=== PATIENT | male | born 2000 | race Caucasian/White ===

== ENCOUNTER 2025-07-30 00:33 | Emergency (ER) | payer OTHER, SELFPAY ==
[2025-07-30 00:36] VITALS: BP 134/85; PULSE 102; RESP 20; TEMP 36.4; O2SAT 98; BMI 41.7
--- NOTE | 2025-07-30 00:52 | ED.EAR ---
HPI - Ear Problem General Chief complaint: Ear Problems Stated complaint: ear infection Time Seen by Provider: 07/30/25 00:51 Source: patient Mode of arrival: ambulatory Limitations: no limitations History of Present Illness ED Provider: Huy HEATH HPI Narrative: The patient is a 25-year-old male presenting to the ED reporting he is currently being treated for a right ear infection. Patient reports he was seen at urgent care, started on amoxicillin as well as eardrops, however he can not recall the name of the eardrops. The patient reports symptoms did not improve and he returned to urgent care 2 days ago at which time he was switched to clindamycin and given steroid ear drops. Patient presents to the ED as symptoms have continued to not improve and he now feels his right ear canal has swollen shut, patient's states he is concerned the eardrops are ineffective due to the severity of swelling. The patient denies associated fever/chills, nausea, vomiting or other systemic complaint. Patient does report dysphagia and right-sided facial swelling. Patient denies history of diabetes. Related Data Allergies Allergy/AdvReac Type Severity Reaction Status Date / Time No Known Allergies Allergy Verified 07/30/25 00:38 Review of Systems Review of Systems: Yes all other systems are reviewed and are negative PMFSH Social History Social History Advance Directives: No Advance Directives Information Provided: No Do you have a plan to hurt others: No Plan Physical Exam Vital Signs: Vital Signs: Last Vital Signs Temp 97.5 F 07/30/25 00:36 Pulse 102 H 07/30/25 00:36 Resp 20 07/30/25 00:36 BP 134/85 07/30/25 00:36 Pulse Ox 98 07/30/25 00:36 O2 Del Method Room Air 07/30/25 00:36 BMI result Body Mass Index 41.7 CONSTITUTIONAL: The patient appears non-toxic, well nourished and in no acute distress. Vital signs as documented. HEAD: Atraumatic, normocephalic. EYES: EOMs grossly intact, pupils equal, conjunctiva clear, no exudate. ENT: Nares patent, no discharge. Airway patent, no audible stridor, visible mucosa is pink and moist without noted lesions. Left ear is unremarkable. Right ear canal is markedly swollen, unable to visualize TM. Mild swelling noted to the right TMJ and maxilla. Posterior pharynx demonstrates midline nonedematous uvula, no peritonsillar swelling, no tonsillitis or tonsillar exudate. NECK: trachea is midline, no obvious masses or gross abnormalities. CHEST: Symmetric movement, normal appearance. LUNGS: Non-labored work of breathing. CARDIAC: No evidence of hypoperfusion. ABDOMEN: Nondistended, no obvious injury. : Deferred. EXTREMITIES: Moves all extremities spontaneously without reported pain. No obvious injury or deformity noted. NEURO: Alert and oriented x3, CN II-XII appear grossly intact. Cerebellar Functioning grossly intact. Speech clear and appropriate. SKIN: Warm, dry, color appropriate. No rashes or lesions noted. Medications Administered Discontinued Medications Generic Name Dose Route Start Last Admin Trade Name Freq PRN Reason Stop Dose Admin Ibuprofen 600 mg 07/30/25 01:03 07/30/25 01:07 Ibuprofen 600 Mg Tablet PO 07/30/25 01:04 600 mg ONCE ONE Administration Neomycin/Polymyxin/Hydrocortisone 3 drop 07/30/25 00:59 07/30/25 01:05 Neomycin/Polymyxin/Hc Otic Catina 10 Ml Drpbtl EAR-RIGHT 07/30/25 01:00 Not Given ONCE ONE Medical Decision Making Medical Decision Making MDM Narrative: 1:04 AM 07/30/2025 (Ellen HEATH): The patient is a 25-year-old male presenting to the ED reporting he is currently being treated for a right ear infection. Patient reports he was seen at urgent care, started on amoxicillin as well as eardrops, however he can not recall the name of the eardrops. The patient reports symptoms did not improve and he returned to urgent care 2 days ago at which time he was switched to clindamycin and given steroid ear drops. Patient presents to the ED as symptoms have continued to not improve and he now feels his right ear canal has swollen shut, patient's states he is concerned the eardrops are ineffective due to the severity of swelling. The patient denies associated fever/chills, nausea, vomiting or other systemic complaint. Patient does report dysphagia and right-sided facial swelling. Patient denies history of diabetes. On exam the patient's left ear canal and TM are unremarkable, right ear canal is swollen shut, unable to visualize right TM. There is rknz-[id number]-bidwxiia swelling noted to the right face, posterior pharynx shows midline nonedematous uvula, no peritonsillar swelling or tonsillitis. The patient we will have an ear wick placed and we will administer the patient's ear drops with adjunct of ear wick. Patient will then be discharged with supportive care and instructions to continue antibiotic therapy. Of note the patient has only been taking Tylenol for pain, we will add on ibuprofen. 1:47 AM 07/30/2025 (Ellen HEATH): Ear wick was successfully placed, patient tolerated well, the patient's eardrops from home, specifically polymyxin/neomycin/HC were instilled after wick was placed, with good effect. The patient will be discharged as described above. Admission/Observation Consideration of admission/observation: Escalation of care including admission/observation considered External Record Review External record reviewed: Outpatient record Prescription Management I considered prescription management with: Pain Medication and Antibiotic Discharge Plan Discharge Clinical Impression: Otitis externa Qualifiers: Otitis externa type: unspecified type Chronicity: acute Laterality: right Qualified Code(s): H60.501 - Unspecified acute noninfective otitis externa, right ear Otitis media Qualifiers: Otitis media type: unspecified Laterality: right Qualified Code(s): H66.91 - Otitis media, unspecified, right ear Patient Disposition: Home, Self-Care Instructions: How to Use Ear Drops (ED), Ear Infection (ED) Additional Instructions: Thank you for choosing [facility]'s Emergency Department for your care today. At this time there is no indication for admission to the hospital or continued ED observation, and it is safe to discharge you home. Your right ear canal was swollen shut today, likely as a result of your outer ear infection. We placed a ear wick sponge in the ear canal which should allow your eardrops to penetrate deeper into your ear canal thus making them more effective. The ear wick will fall out when the swelling improves, however please continue using the eardrops as directed even after the wick falls out. Please continue taking your oral antibiotics as prescribed until they are finished. You should take alternating (staggered) doses of ibuprofen 600mg and Tylenol 1000mg every 4 hours as needed for any additional pain. Please stay well hydrated and get plenty of rest. Please follow up with your primary care physician for re-evaluation, additional management of your symptoms, and continued preventative care. If you do not have a primary care physician, please call the [facility] at [phone] to establish a new primary care physician. While waiting to establish your new primary care physician, you can call our [facility] at [phone] for non-emergency needs. Please return to the emergency department if you develop a severe or sudden change in your symptoms, a fever over 100.4 that does not improve with Tylenol or Ibuprofen, recurrent vomiting, or any other new or worsening symptoms or concerns. Print Language: Telugu
--- OUTSIDE RECORDS SUMMARY | 2025-07-30 01:05 | XMS_ITS | Encounter Summary ---
Author Organization [facility] Address [address] [place] [address] Phone Care Team Providers Care Cat Operator Name Role Phone Wm Mckinney MD Primary Care Provider [phone] Encounter Details Date Type Department Care Team (Late st Contact Info) Description 11/29/2016 [place]ation [facility] [place] [address] [place] [address] Family Medicine, Physician [address] [place] [address] Social History Tobacco Use Types Packs/Day Years Used Date Smoking Tobacco: Never Assessed Sex and Gender Information Value Date Recorded Sex Assigned at Not on file Legal Sex Male 6:15 PM EDT Gender Identity Not on file Sexual Orientation Not on file documented as of this encounter Plan of Treatment Not on file documented as of this encounter Visit Diagnoses Not on filedocumented in this encounter Care Teams Cat Operator Relationship Specialty Start Date End Date Wm Mckinney MD [address] [place] [address] PCP - General 05/02/17 02/26/23 documented as of this encounter
--- OUTSIDE RECORDS SUMMARY | 2025-07-30 01:05 | XMS_ITS | Encounter Summary ---
Author Organization [facility] Address [address] [place] [address] Phone Care Team Providers Care Mechanical Design Technician Name Role Phone Wm Mckinney MD Primary Care Provider [phone] Encounter Details Date Type Department Care Team (Late st Contact Info) Description 05/08/2017 Conversion Encounter [facility] [place] [address] [place] [address] Social History Tobacco Use Types Packs/Day Years [...] on filedocumented in this encounter Care Teams Mechanical Design Technician Relationship Specialty Start Date End Date Wm Mckinney MD [address] [place] [address] PCP - General 05/02/17 02/26/23 documented as of this encounter
--- OUTSIDE RECORDS SUMMARY | 2025-07-30 01:05 | XMS_ITS | Clinical Summary ---
Author Organization [facility] Address [address] [place] [address] Phone Care Team Providers Care Substation Operator Apprentice Name Role Phone Unavailable Primary Care Provider Unavailabl e Immunizations Immunization Administration Dates Next Due DTaP 01/25/2003, 1,1999,05/22,1999 DTaP 5 01/25/2003, 1,1999,05/22,1999 HPV Vaccine 9 Valent 05/03/2013,09/24/2011,07/16 HPV, Quadrivalent 05/03/2013,09/24/2011,07/16/20 11 Hep B, ped/adol 1999,1999,1999 Hib (PRP-T) 08/18/2000, 9,1999,03/21 IPV 01/25/2003, 1,1999,03/21 Influenza, injectable, quadrivalent 02/2015,05/26/2014,08/10/2013,06/30,07/16/2011,06/16/2010,07/11/2009 Influenza, injectable, quadr ivalent, preservative free 05/26/2014,08/10/2013 Influenza, intranasal, quadrivalent 05/2012,07/16/2011,06/16/2010,07/11 MMR 01/25/2003,08/18/2000 Meningococcal Conj (Menactra) MCV4P 07/28/2015,0 06/16/2010 Pneumococcal Conjugate 01/02/2001,08/18/2000 Tdap 05/09/2009 Varicella 04/08/2001,08/18/2000 Family History Relation Name Status Comments Mother anxiety diagnos ed with NONPSYCHOT BRAIN SYN NOS Other Siblings: broth er has ADHD and is with another foster family; 3 brothers total (one with mom and another with dad) Social History Tobacco Use Types Packs/Day Years Used Date Smoking Tobacco: Never Assessed Sex and Gender Information Value Date Recorded Sex Assigned at Not on file Legal Sex Male 6:15 PM EDT Gender Identity Not on file Sexual Orientation Not on file Last Filed Vital Signs Vital Sign Reading Time Taken Comments Blood Pressure 125/82 12/02/2016 12:00 AM EDT Pulse 80 12/02/2016 12:00 AM EDT Temperature 36.1 C (97 F) 12/02/2016 12:00 AM EDT Respiratory Rate - - Oxygen Saturation - - Inhaled Oxygen Concentration - - Weight 149 kg (329 lb 3.2 oz) 12/02/2016 12:00 A M EDT Height 186.1 cm (6' 1.25 ) 12/02/2016 12:00 AM E DT Body Mass Index 43.13 12/02/2016 12:00 AM EDT Plan of Treatment Health Maintenance Due Date Last Done Comments DTaP,Tdap,and Td Vaccines (7 - Td or Tdap) 05/09/2019 05/09/2009, 01/25/2003, 01/25/2003, Additional history exists Influenza Vaccines (#1) 2025 07/28/20 15, 05/26/2014, 05/26/2014, Additional history exists COVID-19 Vaccine ( season) 2025 Hepatitis B Vaccines Completed 1999, 1999, 1999 HIB Vaccines Completed 08/18/2000, 06/23, 1999, Additional history exists Pneumococcal Vaccine Completed 01/02/2001, 08/18/20 00 Varicella Vaccines Completed 04/08/2001, 08/18/2000 IPV Vaccines Completed 01/25/2003, 12/21, 1999, Additional history exists MMR Vaccines Completed 01/25/2003, 08/18/2000 HPV Vaccines Completed 05/03/2013, 04/22, 09/24/2011, Additional history exists Meningococcal Vaccine Completed 07/28/2015, 010 Hepatitis A Vaccines Aged Out No long er eligible based on patient's age to complete this topic Men B Vaccine Aged Out No longer elig ible based on patient's age to complete this topic
--- OUTSIDE RECORDS SUMMARY | 2025-07-30 01:05 | XMS_ITS | Encounter Summary ---
Author Organization [facility] Address [address] [place] [address] Phone Care Team Providers Care Tin Tie Machine Operator Automatic Name Role Phone Wm Mckinney MD Primary Care Provider [phone] Encounter Details Date Type Department Care Team (Late st Contact Info) Description 02/08/2018 [facility]version [facility]counter [facility] [address] [address] Social History Tobacco Use Types Packs/Day Years [...] on filedocumented in this encounter Care Teams Tin Tie Machine Operator Automatic Relationship Specialty Start Date End Date Wm Mckinney MD [address] [place] [id number] PCP - General 05/02/17 02/26/23 documented as of this encounter
[2025-07-30 01:47] VITALS: BP 143/80; PULSE 98; RESP 18; TEMP 36.7; O2SAT 97
[2025-07-30 01:55] VITALS: BP 143/80; PULSE 98; RESP 18; TEMP 36.7; O2SAT 97
== END 2025-07-30 01:55 | disposition home or self-care (01) ==
PROVIDERS: Emergency Provider Emergency Medicine
DX: H60.501 Unspecified acute noninfective otitis externa, right ear (principal); H66.91 Otitis media, unspecified, right ear
CPT/HCPCS: 99283